=== PATIENT | female | born 2000 | race Caucasian/White ===

== ENCOUNTER 2019-05-14 18:48 | Emergency (ER) | payer OTHER ==
[~2019-05-14] VITALS: Ht 162.6 cm; Wt 76.5 kg
[2019-05-14 18:50] VITALS: BP 133/72
[2019-05-14] MEDS ORDERED: QC A650T3 PO (18:55)
== END 2019-05-14 20:20 | disposition left against medical advice (07) ==
LOC: M ED 18:48
DX: R51 Headache (principal)

== ENCOUNTER → 2019-06-05 | Outpatient (REF) | payer OTHER ==
[~2019-06-05] MED LIST: QC A650T3 PO
[2019-06-05 18:13] LABS: CHLAMYDIA DNA AMPLIFICATION NEGATIVE (NEGATIVE); GC DNA AMPLIFICATION NEGATIVE (NEGATIVE)
== END ==
LOC: M LAB REF 16:30
PROVIDERS: ATTEND Physician Assistant
DX: Z20.2 Contact with and (suspected) exposure to infections with a predominantly sexual mode of transmission (principal)

== ENCOUNTER → 2019-12-16 | Outpatient (REF) | payer OTHER | LOC: M LAB REF 14:34 | PROVIDERS: ATTEND Family Medicine | DX: R10.2 Pelvic and perineal pain (principal) ==

== ENCOUNTER 2020-11-16 06:49 | Emergency (ER) | payer OTHER ==
[~2020-11-16] VITALS: Ht 162.6 cm; Wt 77.5 kg
[2020-11-16 08:06] LABS: BASO % 0.6 % (0.0-1.0); EOS # 0.1 10^3/uL (0.0-0.5); EOS % 1.4 % (0.0-3.0); HEMATOCRIT 45.2 % (36.0-47.0); HEMOGLOBIN 15.2 g/dl (12.0-15.5); LYMPH # 1.9 10^3/uL (1.5-5.0); LYMPH % 36.5 % (24.0-44.0); MEAN CORPUSCULAR HEMOGLOBIN 31.2 pg (27.0-33.0); MEAN CORPUSCULAR HGB CONC 33.6 g/dl (32.0-36.5); MEAN CORPUSCULAR VOLUME 92.8 fl (80.0-96.0); MONO # 0.5 10^3/uL (0.0-0.8); NEUTROPHILS # 2.6 10^3/uL (1.5-8.5); NEUTROPHILS % 51.3 % (36.0-66.0); PLATELET COUNT, AUTOMATED 295 10^3/uL (150-450); RED BLOOD COUNT 4.87 10^6/uL (4.00-5.40); WHITE BLOOD COUNT 5.1 10^3/uL (4.0-10.0)
[2020-11-16 08:30] LABS: BLOOD UREA NITROGEN 13 MG/DL (7-18); CALCIUM LEVEL 9.3 MG/DL (8.5-10.1); CARBON DIOXIDE LEVEL 26 MEQ/L (21-32); CHLORIDE LEVEL 105 MEQ/L (98-107); CREATININE FOR GFR 0.76 MG/DL (0.55-1.30); GLOMERULAR FILTRATION RATE > 60.0 (>60); GLUCOSE, FASTING 89 MG/DL (70-100); POTASSIUM SERUM 3.9 MEQ/L (3.5-5.1); SODIUM LEVEL 138 MEQ/L (136-145)
--- NOTE | 2020-11-16 09:27 | REP ---
INDICATION: pelvic pain COMPARISON: None. TECHNIQUE: Transabdominal pelvic ultrasound with color Doppler evaluation of the ovaries. FINDINGS: Bladder is unremarkable and measures 8.5 x 7.8 x 5.2 cm. Normal anteverted uterus measures 6.9 x 4.2 x 5.5 cm. The endometrial complex measures 7.0 mm thickness. No discrete uterine or endometrial abnormalities are appreciated. Bilateral ovaries are normal in appearance and vascularity without evidence for torsion. Right ovary measures 2.2 x 1.3 x 2.3 cm; R I = 0.55. Left ovary measures 2.2 x 1.6 x 2.7 cm; R I = 0.65. No pelvic fluid or adnexal mass lesion IMPRESSION: Normal pelvic ultrasound <Electronically signed by Tank Lopes > 11/16/20 0901
[2020-11-16 10:10] LABS: CHLAMYDIA DNA AMPLIFICATION NEGATIVE (NEGATIVE); GC DNA AMPLIFICATION NEGATIVE (NEGATIVE)
[2020-11-16] MEDS ORDERED: COLA100C5 PO ×2 (10:13→10:55)
[2020-11-16] MEDS ORDERED: IBUP80TA PO ×2 (10:13→10:55)
[2020-11-16] MEDS ORDERED: ACETAMINOPHEN TAB 650MG DOSE (2X325MG) PO ONE (10:15)
[2020-11-16] MEDS ORDERED: IBUPROFEN 800 MG TAB PO ONE (10:15)
[2020-11-16 10:18] VITALS: BP 118/76
== END 2020-11-16 10:25 | disposition home or self-care (01) ==
LOC: M ED 06:49
DX: K59.00 Constipation, unspecified (principal); R10.2 Pelvic and perineal pain

== ENCOUNTER 2020-11-19 17:11 | Emergency (ER) | payer OTHER ==
[~2020-11-19] VITALS: Ht 162.6 cm; Wt 79.5 kg
[~2020-11-19 17:11] MED LIST changes: +COLA100C5 PO; +IBUP80TA PO
--- NOTE | 2020-11-19 17:56 | REP ---
INDICATION: R/O DVT. COMPARISON: None. TECHNIQUE: Deep vein duplex ultrasound of the right upper extremity from the wrist to the axilla. FINDINGS: The deep veins demonstrate normal compression, normal Doppler color flow and normal Doppler waveforms from the wrist to the axilla. IMPRESSION: There is no right upper extremity deep vein thrombus. <Electronically signed by Axel Styles > 11/19/20 0665
[2020-11-19] MEDS ORDERED: ANEC4CRE3 TOP (18:46)
[2020-11-19 19:05] VITALS: BP 134/84
== END 2020-11-19 19:09 | disposition home or self-care (01) ==
LOC: M ED 17:11
DX: G89.18 Other acute postprocedural pain (principal); M79.601 Pain in right arm; F17.200 Nicotine dependence, unspecified, uncomplicated